=== PATIENT | male | born 1995 | race Two or more races ===

== ENCOUNTER 2017-03-18 02:25 | Emergency (ER) | payer SELFPAY ==
[~2017-03-18] VITALS: Ht 170.2 cm; Wt 68.0 kg
[2017-03-18] MEDS ORDERED: NALOXONE 0.4 MG/ML, 1ML ONE (02:31)
[2017-03-18 03:00] LABS: HEMOGLOBIN 16.1 g/dL (13.7-18.0)
[2017-03-18] MEDS ORDERED: SODIUM CHLORIDE FLUSH 10ML SYR IVF ONE (03:00)
[2017-03-18 03:13] LABS: ASPARTATE AMINO TRANSFERASE 32 U/L (15-37); BLOOD UREA NITROGEN 6 mg/dL (7-18)
[2017-03-18] MEDS ORDERED: OMNIPAQUE 350 MG/ML, 100ML BOTTLE ONE (03:27)
[2017-03-18 03:52] VITALS: BP 136/89
[2017-03-18] MEDS ORDERED: NALOXONE 0.4 MG/ML, 1ML IVPush ONE (04:00)
== END 2017-03-18 03:54 | disposition home or self-care (01) ==
LOC: ED 03:48
DX: S51.012A Laceration without foreign body of left elbow, initial encounter (principal); R10.12 Left upper quadrant pain; R10.84 Generalized abdominal pain; R10.32 Left lower quadrant pain; S20.212A Contusion of left front wall of thorax, initial encounter; S30.1XXA Contusion of abdominal wall, initial encounter; V43.52XA Car driver injured in collision with other type car in traffic accident, initial encounter; Y93.89 Activity, other specified; Y92.488 Other paved roadways as the place of occurrence of the external cause; Y99.8 Other external cause status
CPT/HCPCS: 36415; 71260; 74177; 80047; 80053; 85025; 93005; 96374; 99285; J2310; Q9967

== ENCOUNTER → 2020-09-19 | Outpatient (CLI) | payer OTHER ==
[~2020-09-19] MED LIST: DENIES
== END | disposition home or self-care (01) ==
LOC: STAR 11:24
PROVIDERS: ATTEND Anesthesiology
DX: Z01.812 Encounter for preprocedural laboratory examination (principal); Z20.828 Contact with and (suspected) exposure to other viral communicable diseases
CPT/HCPCS: 36415; 87635

== ENCOUNTER 2020-09-22 07:44 | Day surgery (SDC) | payer OTHER ==
[~2020-09-22] VITALS: Ht 167.6 cm; Wt 59.0 kg
[2020-09-22] MEDS ORDERED: EPINEPHRINE 1 MG/ML, 1ML ONE (08:12)
[2020-09-22] MEDS ORDERED: BUPIVACAINE/PF 0.5% ONE (08:12)
[2020-09-22 08:20] VITALS: BP 107/68
[2020-09-22] MEDS ORDERED: DENIES (08:25)
[2020-09-22] MEDS ORDERED: CHLORHEXIDINE 15 ML UDC MM ONE (08:30)
[2020-09-22] MEDS ORDERED: LACTATED RINGERS 1,000 ML IV SCH (08:30)
[2020-09-22] MEDS ORDERED: MIDAZOLAM 1 MG/ML, 2ML ONE (08:46)
[2020-09-22] MEDS ORDERED: FENTANYL PF 250 MCG/5ML ONE (08:46)
[2020-09-22] MEDS ORDERED: HYDROcodone/APAP 7.5-325MG/15ML UDC PO PRN (09:00)
[2020-09-22] MEDS ORDERED: HYDROmorphone 1 MG/ML, 1ML INJ IVPush PRN (09:00)
[2020-09-22] MEDS ORDERED: MEPERIDINE/PF 25MG/0.5ML IVPush PRN (09:00)
[2020-09-22] MEDS ORDERED: hydrALAzine 20 MG/ML, 1ML IV PRN (09:00)
[2020-09-22] MEDS ORDERED: DIPHENHYDRAMINE 50 MG/ML, 1ML IVPush PRN (09:00)
[2020-09-22] MEDS ORDERED: LABETALOL 5MG/ML, 20ML IV PRN (09:00)
[2020-09-22] MEDS ORDERED: PROMETHAZINE 25 MG/ML, 1ML IVPush PRN (09:00)
[2020-09-22] MEDS ORDERED: HALOPERIDOL 5 MG/ML IV PRN (09:00)
[2020-09-22] MEDS ORDERED: KETOROLAC 30 MG/1 ML ONE (09:16)
[2020-09-22] MEDS ORDERED: ONDANSETRON 2MG/ML, 2ML ONE (09:30)
[2020-09-22] MEDS ORDERED: DEXAMETHASONE 4 MG/ML, 1ML ONE (09:30)
[2020-09-22] MEDS ORDERED: PROPOFOL 10 MG/ML, 20ML ONE (09:30)
[2020-09-22] MEDS ORDERED: GLYCOPYRROLATE 0.2MG/1ML, 5ML ONE (09:30)
[2020-09-22] MEDS ORDERED: NEOSTIGMINE 1 MG/ML, 10ML ONE (09:30)
[2020-09-22] MEDS ORDERED: SUCCINYLCHOLINE 20 MG/ML, 10ML ONE (09:30)
[2020-09-22] MEDS ORDERED: CEFAZOLIN 1,000 MG ONE (09:30)
[2020-09-22] MEDS ORDERED: ROCURONIUM 10MG/ML,5ML ONE (09:30)
[2020-09-22] MEDS ORDERED: FENTANYL PF 100 MCG/2ML ONE (09:49)
[2020-09-22] MEDS ORDERED: HYDROcodone/APAP 7.5-325MG/15ML UDC ONE (09:49)
[2020-09-22] MEDS: FENTANYL PF 100 MCG/2ML IV PRN ×2 (09:51→10:03)
== END 2020-09-22 12:45 | disposition home or self-care (01) ==
LOC: OUT 07:44
PROVIDERS: ATTEND Surgery
DX: K42.9 Umbilical hernia without obstruction or gangrene (principal); F17.210 Nicotine dependence, cigarettes, uncomplicated; Z82.49 Family history of ischemic heart disease and other diseases of the circulatory system
CPT/HCPCS: 49585; J0171; J0330; J0690; J1100; J1885; J2250; J2405; J2704; J2710; J3010; J7120